=== PATIENT | female | born 2000 ===

== ENCOUNTER 2021-01-22 19:30 | Emergency (ER) | payer MEDICAID, SELFPAY ==
[2021-01-22 19:36] VITALS: BP 123/66; PULSE 85; RESP 17; TEMP 36.6; O2SAT 100
--- NOTE | 2021-01-22 22:45 | PC.NURSE ---
1st call no answer
--- NOTE | 2021-01-22 23:11 | PC.NURSE ---
2nd call, no answer
== END 2021-01-22 23:11 | disposition left against medical advice (07) ==
LOC: ANHED 23:16
DX: R51.9 Headache, unspecified (principal)
CPT/HCPCS: 99199

== ENCOUNTER 2022-09-15 18:42 | Emergency (ER) | payer OTHER, SELFPAY ==
--- NOTE | ~2022-09-15 | XR_ITS ---
EXAMINATION: XR chest 2V Exam Date/Time: 09/15/2022 19:00 CDT HISTORY: SOB, MID STERNAL CHEST PAIN 3 DAYS Comparison: None. RESULT: Lines, tubes, and devices: None. Lungs and pleura: Clear. Cardiomediastinal silhouette: Normal. Other: No acute osseous or upper abdominal finding. IMPRESSION: No acute cardiopulmonary process. Reviewed, dictated and finalized at [facility].
--- NOTE | ~2022-09-15 | CT_ITS ---
Clinical Indication: Shortness of breath CT Scan of the Chest with Contrast: Technique: Contiguous sections were acquired throughout the chest after intravenous administration of 100 cc of Omnipaque 350. Dose reduction technique was used on this scan by utilizing automated expos ure control and iterative reconstruction technique. The dose-length product (DLP) was 218.50 mGy-cm. Findings: There is no evidence of any significant mediastinal, hilar or axillary lymphadenopathy. There is no f illing defect in the pulmonary arterial tree to suggest pulmonary embolus. There is no evidence of ao rtic dissection or aneurysm. There is no evidence of pleural or pericardial effusion. The lungs are clear. No pulmonary nodules or infiltrates are noted. Images through the upper abdomen reveal no abnormalities. Impression: No evidence of pulmonary embolus, aortic dissection, or aortic aneurysm. Clear lungs. Reviewed, dictated and finalized at [facility]. Impression: No evidence of pulmonary embolus, aortic dissection, or aortic aneurysm. Clear lungs.
--- NOTE | 2022-09-15 18:45 | ECG_ITS ---
Measurements Intervals [place] Rate: 73 P: 51 AK: 153 QRS: 26 QRSD: 88 T: 24 QT: 328 QTc: 363 Interpretive Statements SINUS RHYTHM POSSIBLE LEFT ATRIAL ENLARGEMENT RSR' IN V1 OR V2, PROBABLY NORMAL VARIANT BORDERLINE ECG NO PREVIOUS ECG AVAILABLE FOR COMPARISON Electronically Signed On 09-15-2022 21:06:45 CDT by Brock Desir D.O.
[2022-09-15 18:47] VITALS: BP 133/80; PULSE 84; RESP 18; TEMP 36.8; O2SAT 100
[2022-09-15 18:55] LABS: Basophils Absolute Auto 0.1 K/mm3 (0.0-0.1); Basophils Percent Auto 0.7 % (0.2-1.2); Eosinophils Absolute Auto 0.2 K/mm3 (0-0.3); Eosinophils Percent Auto 2.6 % (0-4.4); Hematocrit 41.2 % (37.0-47.0); Hemoglobin 13.3 g/dL (12.0-15.0); Immature Granulocyte Absolute 0.03 K/mm3 (0.00-0.031); Immature Granulocyte Percent A 0.3 % (0-0.5); Lymphocytes Absolute Auto 3.36 K/mm3 (0.9-3.2); Lymphocytes Percent Auto 38.4 % (18.3-44.2); Mean Corpuscular HGB Conc 32.3 g/dl (32-36); Mean Corpuscular Hemoglobin 28.5 pg (26-34); Mean Corpuscular Volume 88.4 fl (80-100); Mean Platelet Volume 11.2 fl (7.4-10.4); Monocytes Absolute Auto 0.4 K/mm3 (0.1-0.6); Monocytes Percent Auto 4.5 % (2.6-8.5); Neutrophils Absolute Auto 4.7 K/mm3 (1.3-6.7); Neutrophils Percent Auto 53.5 % (45.5-73.1); Platelet Count Result 214 k/mm3 (150-375); Red Blood Count 4.66 M/mm3 (4.2-5.4); Red Cell Distribution Width 13.5 % (11.5-14.5); White Blood Count 8.8 K/mm3 (4.5-10.0)
[2022-09-15 19:09] LABS: Alanine Aminotransferase 24 U/L (6-35); Albumin Level 4.4 g/dL (3.5-5.1); Alkaline Phosphatase 64 U/L (38-126); Anion Gap 8 mmol/L (8-16); Aspartate Amino Transferase 26 U/L (14-36); Bilirubin,Total 0.4 mg/dL (0.2-1.3); Blood Urea Nitrogen 15 mg/dL (7-17); Carbon Dioxide 27 mmol/L (22-30); Chloride 101 mmol/L (98-107); Estimated CRCL calculation 114 ml/min; Estimated Glomerular Filt Rate > 60; Glucose 95 mg/dL (65-110); Potassium 4.2 mmol/L (3.4-5.0); Sodium 136 mmol/L (137-145)
[2022-09-15 20:54] VITALS: O2SAT 100
--- NOTE | 2022-09-15 21:04 | ED.SOB ---
HPI - SOB/Dyspnea General Chief Complaint: Shortness of Breath/Dyspnea Stated Complaint: SOB Time Seen by Provider: 09/15/22 20:49 History of Present Illness HPI Narrative: 21 year old female here for evaluation of shortness of breath and chest pain x3 days. Patient states that she has had difficulty catching her breath with exertion and when she lies down flat. She also notes a central chest tightness , worse with deep breaths. No nausea, vomiting, fevers, chills, cough, congestion. No leg swelling, pain, recent trips or travel, OCP use. Review of Systems Review of Systems: Gen: Denies fevers or chills Eyes: Denies eye pain or visual change ENT: Denies congestion Respiratory: reports shortness of breath, chest pain CV: Denies chest pain or palpitations GI: Denies abdominal pain nausea, emesis or diarrhea : denies burning, urgency, frequency or hematuria Musculoskeletal: Denies back pain or muscle pain Neuro: Denies numbness, tingling, weakness or focal weakness Skin: Denies rash Except as documented, all other systems reviewed and negative Exam Narrative: APPEARANCE: Well appearing, no pain in distress, well-nourished. Head: Normocephalic and atraumatic. EYES: PERRLA/EOMI, conjunctivae clear NOSE: No nasal drainage EARS: External ear normal in appearance THROAT: Oropharynx is clear. Mucous membranes are moist. NECK: Supple. No adenopathy, no masses. RESPIRATORY: Airway patent, respirations nonlabored. Clear to auscultation bilaterally, no rales, rhonchi, wheezing. CARDIOVASCULAR: Regular rate and rhythm without murmurs, rubs, or gallops. ABDOMINAL: Normoactive bowel sounds. Soft, nontender, nondistended. No rebound tenderness or guarding. MUSCULOSKELETAL: Extremities are warm and well-perfused. Moves all extremities well. No edema. NEURO: Normal speech. No focal neurologic deficits. SKIN: Skin is warm and dry. No rashes. PSYCHIATRIC: Normal affect/mood. Course Vital Signs Vital signs: Vital Signs Temperature 98.2 F 09/15/22 18:47 Pulse Rate 84 09/15/22 18:47 Respiratory Rate 18 09/15/22 18:47 Blood Pressure 133/80 09/15/22 18:47 Pulse Oximetry 100 09/15/22 18:47 Oxygen Delivery Room Air 09/15/22 18:47 Temperature 98.2 F 09/15/22 18:47 Pulse Rate 84 09/15/22 18:47 Respiratory Rate 18 09/15/22 18:47 Blood Pressure 133/80 09/15/22 18:47 Pulse Oximetry 100 09/15/22 20:54 Oxygen Delivery Room Air 09/15/22 20:54 MDM - SOB/Dyspnea MDM Narrative Medical decision making narrative: 21 yo female here due to CP and SOB x several days. heart and lungs are CTAB, no leg swelling on exam. VSS. CXR nl. EKG and trop non-ischemic. dimer elevated slightly (obtained d/t tachycardia) but follow up CTA PE is negative for acute process. urine preg negative. patient asymptomatic after ibuprofen and anxiolytics. likely costochondritis or anxiety. advised close pmd f/u, discussed return precautions and she voiced understanding. Lab Data 09/15/22 18:50 09/15/22 18:50 Labs: Lab Results 09/15/22 09/15/22 09/16/22 Range/Units 18:50 21:38 Unknown WBC 8.8 (4.5-10.0) K/mm3 RBC 4.66 (4.2-5.4) M/mm3 Hgb 13.3 (12.0-15.0) g/dL Hct 41.2 (37.0-47.0) % MCV 88.4 (80-100) fl MCH 28.5 (26-34) pg MCHC 32.3 (32-36) g/dl RDW 13.5 (11.5-14.5) % Plt Count 214 (150-375) k/mm3 MPV 11.2 H (7.4-10.4) fl Immature Gran % (Auto) 0.3 (0-0.5) % Neut % (Auto) 53.5 (45.5-73.1) % Lymph % (Auto) 38.4 (18.3-44.2) % Oliver % (Auto) 4.5 (2.6-8.5) % Eos % (Auto) 2.6 (0-4.4) % Baso % (Auto) 0.7 (0.2-1.2) % Lymph # (Auto) 3.36 H (0.9-3.2) K/mm3 Oliver # (Auto) 0.4 (0.1-0.6) K/mm3 Eos # (Auto) 0.2 (0-0.3) K/mm3 Baso # (Auto) 0.1 (0.0-0.1) K/mm3 Abs Immat Gran (auto) 0.03 (0.00-0.031) K/mm3 Absolute Neuts (auto) 4.7 (1.3-6.7) K/mm3 Absolute Nucleated RBC 0.0 (0.0-0.012) K/mm
[2022-09-16 07:50] LABS: Partial Thromboplastin Time 28.4 SECONDS (22.3-36.8)
[2022-09-16 07:51] LABS: D Dimer 0.76 ug/mL (<0.48)
[2022-09-16 09:27] LABS: Troponin I < 0.012 ng/mL (0.000-0.034)
[2022-09-16 09:54] LABS: Troponin I < 0.012 ng/mL (0.000-0.034)
== END 2022-09-16 06:17 | disposition home or self-care (01) ==
LOC: ANHED 21:28
PROVIDERS: Family Medicine; Emergency Provider Physician Assistant; PCP Family Medicine
DX: M94.0 Chondrocostal junction syndrome [Tietze] (principal); F41.9 Anxiety disorder, unspecified; R94.31 Abnormal electrocardiogram [ECG] [EKG]
CPT/HCPCS: 36415; 71046; 71275; 80053; 84484; 85025; 85380; 85610; 85730; 93005; 99284; Q9967